=== PATIENT | female | born 1980 | race Caucasian/White ===

== ENCOUNTER 2022-04-01 22:39 | Observation (INO) ==
[2022-04-01 23:10] LABS: Basophils % 0.7 % (0.0-0.8); Eosinophils # 0.1 10*3/uL (0.0-0.87); Eosinophils % 1.7 % (0.00-10.9); Hematocrit 38.7 VOL% (35.7-47.0); Hemoglobin 13.4 GM/DL (12.0-16.0); Immature Granulocytes % 0.3 %; Immature Granulocytes Absolute 0.02 #; Lymphocytes # 2.4 10*3/uL (1.4-4.0); Lymphocytes % 41.4 % (21.3-54.2); Mean Corpuscular HGB Conc 34.6 GM/DL (32-36); Mean Corpuscular Volume 83.4 FL (87-102); Mean Platelet Volume 9.7 FL (9.6-12.0); Monocytes # 0.6 10*3/uL (0.11-0.8); Monocytes % 9.3 % (1.7-12.7); Neutrophils % 46.6 % (38.7-73.9); Platelet Count 355 T/CUMM (130-400); Red Blood Count 4.64 MC/CUMM (3.8-5.5); White Blood Count 5.9 T/CUMM (4-12)
[2022-04-01] MEDS ORDERED: ASPIRIN EC 325 MG TABLET PO STA (23:16)
[2022-04-01 23:34] LABS: Albumin 4.1 G/DL (3.4-5.0); Bilirubin,Total 0.6 MG/DL (0.20-1.00); Osmolality,Calculated 279.1 MOS/KG (273-304); Potassium 3.5 MMOL/L (3.5-5.1); Total Protein 6.9 G/DL (6.4-8.2)
[2022-04-02] MEDS ORDERED: KETOROLAC 30 MG/1 ML VIAL IV STA (00:04)
[2022-04-02] MEDS ORDERED: methylPREDNISolone SOD SUC 125 MG/2 ML VIAL IV STA (00:04)
[2022-04-02] MEDS ORDERED: MORPHINE 2 MG/1 ML SYRINGE IV STA (01:09)
[2022-04-02] MEDS ORDERED: ONDANSETRON 4 MG/2 ML VIAL IV ONE (01:09)
[2022-04-02] MEDS ORDERED: ONDANSETRON 4 MG/2 ML VIAL IV PRN (02:48)
[2022-04-02] MEDS ORDERED: MORPHINE 2 MG/1 ML SYRINGE IV PRN (02:48)
[2022-04-02] MEDS ORDERED: GLUCAGON 1 MG VIAL IM PRN (02:48)
[2022-04-02] MEDS ORDERED: DEXTROSE 10% 250 ML BAG IV PRN (02:48)
[2022-04-02] MEDS ORDERED: ACETAMINOPHEN 325 MG TABLET PO PRN (02:48)
[2022-04-02] MEDS ORDERED: hydrALAZINE 20 MG/1 ML VIAL IV PRN (02:48)
[2022-04-02 03:45] LABS: Risk Ratio 2.93; Thyroid Stimulating Hormone 3.74 uIU/ml (0.358-3.74)
[2022-04-02] MEDS: KETOROLAC 30 MG/1 ML VIAL IV PRN ×2 (07:57→17:29)
[2022-04-02] MEDS: ASPIRIN EC 325 MG TABLET PO SCH (10:28)
[2022-04-02] MEDS: ENOXAPARIN 40 MG/0.4 ML SYRINGE SUBCUT SCH (10:28)
[2022-04-03 08:05] VITALS: BP 100/46
[2022-04-03] MEDS: ASPIRIN EC 325 MG TABLET PO SCH (09:08)
[2022-04-03] MEDS: ENOXAPARIN 40 MG/0.4 ML SYRINGE SUBCUT SCH (09:08)
== END 2022-04-03 11:21 | disposition home or self-care (01) ==
LOC: N.ED 22:39 → N.EDINP 22:39 → N.3E 04-02 04:51
PROVIDERS: ADMIT Family Medicine; ATTEND Family Medicine